=== PATIENT | male | born 1940 | race Caucasian/White ===

== ENCOUNTER → 2020-09-16 02:03 | Outpatient (CLI) | payer MEDICARE, SELFPAY ==
[2020-09-16 19:43] LABS: SARS-CoV-2 RNA PCR Negative
== END ==
PROVIDERS: PCP Physician Assistant; Visit Provider Internal Medicine Gastroenterology
DX: Z01.812 Encounter for preprocedural laboratory examination (principal); Z20.822 Contact with and (suspected) exposure to COVID-19
CPT/HCPCS: C9803; U0003; U0005

== ENCOUNTER 2020-09-19 02:39 | Day surgery (SDC) | payer MEDICARE, SELFPAY ==
[2020-09-12 11:47] VITALS: BMI 28.0
[2020-09-19 10:48] VITALS: BP 152/68; PULSE 64; RESP 20; TEMP 36; O2SAT 99; BMI 27.6
--- NOTE | 2020-09-19 11:01 | WPDANESEPPF ---
Anes - Initial Pre Proc Eval Procedure: Operation Date: 09/19/20 12:30 Proposed Procedures p Colonoscopy - Campbell Cobian MD Date/Time: 09/19/20 11:01 Surgeon: Campbell Cobian MD Pre Op Diagnosis: rectal bleed Patient Data Age: 80 Gender: M Height: 1.83 m Weight: 92.2 kg Last Vital Signs Temp 36.0 C L 09/19/20 10:48 Pulse 64 09/19/20 10:48 Resp 20 09/19/20 10:48 BP 152/68 H 09/19/20 10:48 Pulse Ox 99 09/19/20 10:48 Allergies Allergy/AdvReac Type Severity Reaction Status Date / Time No Known Allergies Allergy Verified 09/19/20 10:47 Home Medications Medication Instructions Recorded Confirmed Type albuterol sulfate 1 inh INHALATION QID PRN 03/24/19 09/12/20 History aspirin 81 mg PO DAILY 03/24/19 09/12/20 History furosemide 40 mg PO DAILY 03/24/19 09/12/20 History lisinopril 40 mg PO DAILY 03/24/19 09/12/20 History metoprolol succinate [Toprol XL] 100 mg PO DAILY 03/24/19 09/12/20 History simvastatin 40 mg PO DAILY 03/24/19 09/12/20 History diclofenac sodium 75 mg PO DAILY 09/12/20 09/12/20 History owyqrfdvuxm-sydpslsgb-jvlwuqnt 1 inh INHALATION DAILY 09/12/20 09/12/20 History [Trelegy Ellipta] sod picosulf 10 mg-magnes 3.5 160 ml PO BID #160 ml 09/12/20 09/19/20 Rx gram-citric 12 gram/160 mL oral solution Patient hx anesthesia problems: none Family hx anesthesia problems: none PMFSH Past Medical History Medical History (Updated 09/19/20 @ 11:27 by Campbell Cobian MD) Cataracts, bilateral Clavicle fracture COPD (chronic obstructive pulmonary disease) First degree AV block HTN (hypertension) Hyperlipidemia Inguinal hernia Peripheral edema Shoulder fracture, right Surgical History Surgical History (Updated 01/13/20 @ 14:25 by Vania Valdovinos CMA) H/O bilateral cataract extraction History of inguinal hernia repair History of tonsillectomy Family History Family History Father Family history of primary malignant neoplasm of liver, Onset Age: 84 Social History Social History Years smoked: 54 Smoking status: Former smoker Tobacco type: cigarettes Smoking end date: 05/05/06 Alcohol intake: current Alcohol use details: SOCIALLY Living arrangements: with family Gender identity (if verbalized by the patient): Male Spiritual care concerns: No Anes - Eval Final PreProcedure Day of Procedure 09/19/20 11:01 Patient weight: overweight Heart: regular rate and rhythm Lungs: clear to auscultation and normal air movement Airway: Mallampati scale class II Neurological: alert and oriented Last oral intake: >/= 8 hours ASA classification: III Emergent: no Anesthetic plan: proceed Anesthesia type and monitoring: general GIVS and standard monitoring Informed Consent: The patient's anesthetic plan and its attendant risks and benefits were discussed with the patient/family/POA. Questions were solicited and answers provided to the satisfaction of the patient/family/POA.
[2020-09-19] MEDS: LACTATED RINGERS 1,000 ML 150 ML IV CONT (11:07)
--- NOTE | 2020-09-19 11:25 | WPDGICN ---
Assessment and Plan Assessment and plan (1) GI bleeding: Code(s): K92.2 - Gastrointestinal hemorrhage, unspecified Status: Acute Assessment and Plan: Patient with rather abrupt onset rather significant GI bleeding period occurred initially 10 days ago and has been subsiding subsequently. Is difficult to attribute this to lower GI or upper GI source. Plan is to evaluate more thoroughly with a colonoscopy and follow up with EGD if necessary. Follow-up CBC may be obtained day of procedure. (2) Chronic respiratory failure: Qualifiers: Respiratory failure complication: unspecified whether with hypoxia or hypercapnia Qualified Code(s): J96.10 - Chronic respiratory failure, unspecified whether with hypoxia or hypercapnia Code(s): J96.10 - Chronic respiratory failure, unspecified whether with hypoxia or hypercapnia Status: Acute GI Consult Note Consult date/time: 09/19/20 11:25 HPI: Forrest Cazares is a 80 year old male Presents for evaluation of GI bleeding. Patient in usual state of health. He has underlying COPD. Apparently 8 dinner while out of town. Upon returning home passed a large amount of bright red blood per rectum this occurred approximately 1-1/2 weeks ago. He states he had bright red blood that became darkish over the next several days diarrhea stools developed period admixed with bowel movement. He states stools were somewhat dark in appearance. He denies any associated abdominal pain or cramping. He has had no rectal pain. Denies any weight loss. Past medical history is significant for COPD for which she is on supplemental oxygen. Family history is noncontributory. Review of Systems Review of Systems: All systems reviewed & are unremarkable except as noted in HPI and below [facility] Past Medical History Medical History (Updated 09/19/20 @ 11:27 by Campbell Cobian MD) Cataracts, bilateral Clavicle fracture COPD (chronic obstructive pulmonary disease) First degree AV block HTN (hypertension) Hyperlipidemia Inguinal hernia Peripheral edema Shoulder fracture, right Surgical History Surgical History (Updated 01/13/20 @ 14:25 by Vania Valdovinos CMA) H/O bilateral cataract extraction History of inguinal hernia repair History of tonsillectomy Family History Family History Father Family history of primary malignant neoplasm of liver, Onset Age: 84 Social History Social History Years smoked: 54 Smoking status: Former smoker Tobacco type: cigarettes Smoking end date: 05/05/06 Alcohol intake: current Alcohol use details: SOCIALLY Living arrangements: with family Gender identity (if verbalized by the patient): Male Spiritual care concerns: No Meds Home Medications and Allergies Home Medications Medication Instructions Recorded Confirmed Type albuterol sulfate 1 inh INHALATION QID PRN 03/24/19 09/12/20 History aspirin 81 mg PO DAILY 03/24/19 09/12/20 History furosemide 40 mg PO DAILY 03/24/19 09/12/20 History lisinopril 40 mg PO DAILY 03/24/19 09/12/20 History metoprolol succinate [Toprol XL] 100 mg PO DAILY 03/24/19 09/12/20 History simvastatin 40 mg PO DAILY 03/24/19 09/12/20 History diclofenac sodium 75 mg PO DAILY 09/12/20 09/12/20 History xrxaokewckb-uxpkfqrwe-zoyjummk 1 inh INHALATION DAILY 09/12/20 09/12/20 History [Trelegy Ellipta] sod picosulf 10 mg-magnes 3.5 160 ml PO BID #160 ml 09/12/20 09/19/20 Rx gram-citric 12 gram/160 mL oral solution Allergies Allergy/AdvReac Type Severity Reaction Status Date / Time No Known Allergies Allergy Verified 09/19/20 10:47 Vital Signs Vital Signs - 24 hr 09/19/20 10:48 Temperature 96.8 F L Pulse Rate 64 Respiratory Rate 20 Blood Pressure 152/68 H Pulse Oximetry 99 Exam Narrative: Exam Narrative: Physical exam reveals patient be al
[2020-09-19 12:04] VITALS: BP 113/62; PULSE 62; RESP 26; O2SAT 95
[2020-09-19 12:14] VITALS: BP 114/57; PULSE 61; RESP 31; O2SAT 93
[2020-09-19 12:24] VITALS: BP 150/80; PULSE 56; RESP 24; O2SAT 98
== END 2020-09-19 12:41 | disposition home or self-care (01) ==
PROVIDERS: PCP Physician Assistant; Visit Provider Internal Medicine Gastroenterology
PROC: 0DJD8ZZ Inspection of Lower Intestinal Tract, Via Natural or Artificial Opening Endoscopic (ICD-10-PCS; CPT 45378; principal; 2020-09-19 12:30)
DX: K92.2 Gastrointestinal hemorrhage, unspecified (principal); Q27.33 Arteriovenous malformation of digestive system vessel; K63.5 Polyp of colon; K57.30 Diverticulosis of large intestine without perforation or abscess without bleeding; K64.8 Other hemorrhoids; J96.10 Chronic respiratory failure, unspecified whether with hypoxia or hypercapnia; J44.9 Chronic obstructive pulmonary disease, unspecified; Z99.81 Dependence on supplemental oxygen; I44.0 Atrioventricular block, first degree; I10 Essential (primary) hypertension; E78.5 Hyperlipidemia, unspecified; Z87.891 Personal history of nicotine dependence; Z79.51 Long term (current) use of inhaled steroids; Z79.82 Long term (current) use of aspirin
CPT/HCPCS: 45382; 45385; 88305; C9803; J2001; J2704; J7120; U0003; U0005

== ENCOUNTER 2021-01-24 14:48 | Outpatient (CLI) | payer MEDICARE, SELFPAY ==
--- NOTE | 2021-01-24 16:55 | P.PCNPFT_ITS ---
PFT Procedure Performed PFT Procedure Performed Spirometry with Pre/Post Bronchodilator Plethysmography (Lung Vol) Diffusing Cap (DLCO) Flow Vol Loop PFT Interpretation This is a pulmonary function test with pre and post-bronchodilator spirometry, plethysmography and diffusing capacity. The test was performed and results interpreted in accordance with the 2019 and 2005 ATS/ERS Task Force guidelines respectively using the Global Lung Function Initiative-2012 reference equations. Patient demonstrated good effort and cooperation. Reproducibility criteria were met. The quality of the pre bronchodilator spirometry maneuver was Grade B and post bronchodilator spirometry maneuver was Grade B. Findings: Spirometry: There is decreased maximal expiratory airflow at all lung volumes with concave expiratory flow tracing. The contour the inspiratory flow tracing is normal. The pre bronchodilator FVC is 3.16 L, 76% predicted. The pre bronchodilator FEV1 is 1.63 L, 53% predicted. The FEV1: FVC ratio is 52%. Post bronchodilator FVC is 3.14 L, representing 1% decrease. The post bronchodilator FEV1 is 1.59 L, representing a 2% decrease. Plethysmography: The total lung capacity is 7.20 L, 96% predicted. The functional residual capacity is 5.11 L, 126% predicted. The residual volume is 4.04 L, 146% predicted. Diffusing capacity: The absolute diffusing capacity is 6.1, 25% predicted. The diffusing capacity corrected for alveolar volume is 1.72, 49% predicted. In comparison to the previous pulmonary function test on 09/19/2014 the post bronchodilator FVC has decreased from 3.70 L to 3.14 L. The post bronchodilator FEV1 is unchanged from 1.69 L to 1.59 L. the total lung capacity is unchanged from 7.17 L to 7.20 L. The functional residual capacity is increased from 4.43 L to 5.11 L. The residual volume is unchanged from 3.77 L to 4.04 L. The absolute diffusing capacity is decreased from 10.3 to a value of 6.1. The diffusing capacity corrected for alveolar volume is decreased from 2.49 to a value of 1.72. Impression: There is a moderately severe obstructive abnormality without si gnificant improvement after inhaling a single dose of albuterol. The increase in residual volume is consistent with air trapping from an obstructive abnormality. The absolute diffusing capacity is severely decreased and remains moderately decreased when corrected for alveolar volume. In comparison to the previous pulmonary function test on 09/19/2014 there has been a greater than anticipated time dependent decrease in the post bronchodilator FVC, functional residual capacity and a greater than anticipated time dependent decrease in the absolute diffusing capacity and diffusing capacity corrected for alveolar volume with no change in the post bronchodilator FEV1, total lung capacity, and residual volume. Clinical correlation is recommended. There are no prior studies for comparison
== END 2021-01-24 14:49 | disposition home or self-care (01) ==
PROVIDERS: PCP Family Medicine; Visit Provider Student in an Organized Health Care Education/Training Program
DX: J96.11 Chronic respiratory failure with hypoxia (principal); R94.2 Abnormal results of pulmonary function studies
CPT/HCPCS: 94060; 94726; 94729

== ENCOUNTER 2021-03-27 10:42 | Outpatient (CLI) | payer MEDICARE, SELFPAY ==
--- NOTE | ~2021-03-27 | US_ITS ---
EXAMINATION: US carotid duplex BI EXAM DATE: 03/27/2021 11:26 INDICATION: Slurred speech. TECHNIQUE: Grayscale, color and pulsed Doppler images of the cervical carotid arteries were obtained . The degree of vessel stenosis is placed in one of the following categories: normal, <50% stenosis, 50-69% stenosis, >=70% stenosis but less than near-occlusion, near-occlusion, or occlusion. Note that percent stenosis relative to normal distal artery lumen diameter is indirectly measured from velocit y measurements as described by Joe, et al. Radiology 2003; 229:[id number]. There is no prior study fo r comparison. FINDINGS: RIGHT SIDE: Right common carotid artery peak systolic velocity (PSV in cm/s): 70 Right bulb/internal carotid artery peak systolic velocity (PSV in cm/s): 65 Right internal carotid artery end diastolic velocity (EDV in cm/s): 15 Right ICA/CCA peak systolic ratio: 0.9 Right external carotid artery peak systolic velocity (PSV in cm/s): 79 Right vertebral artery antegrade flow: yes There is mild carotid bulb plaque. Velocity and Doppler waveforms in the common and internal carotid arteries is normal. LEFT SIDE: Left common carotid artery peak systolic velocity (PSV in cm/s): 74 Left bulb/internal carotid artery peak systolic velocity (PSV in cm/s): 65 Left internal carotid artery end diastolic velocity (EDV in cm/s): 23 Left ICA/CCA peak systolic ratio: 0.9 Left external carotid artery peak systolic velocity (PSV in cm/s): 76 Left vertebral artery antegrade flow: yes There is mild carotid bulb plaque. Velocity and Doppler waveforms in the common and internal carotid arteries is normal. IMPRESSION: 1. Less than 50 percent stenosis in the right internal carotid artery. 2. Less than 50 percent stenosis in the left internal carotid artery. Reviewed, dictated and finalized at location A. [facility]
== END 2021-03-27 10:43 | disposition home or self-care (01) ==
LOC: ANHIMG 10:49
PROVIDERS: PCP Family Medicine; Visit Provider Internal Medicine Cardiovascular Disease
DX: R47.81 Slurred speech (principal)
CPT/HCPCS: 93880

== ENCOUNTER 2021-08-31 13:30 | Outpatient (RCR) | payer MEDICARE, SELFPAY ==
[2021-05-04 11:10] VITALS: BP 112/58; O2SAT 91
[2021-05-04 11:54] VITALS: PULSE 62
== END 2021-08-31 23:59 | disposition home or self-care (01) ==
LOC: ANHCPREHAB 13:30
PROVIDERS: PCP Physician Assistant; Visit Provider Student in an Organized Health Care Education/Training Program
DX: J44.9 Chronic obstructive pulmonary disease, unspecified (principal)
CPT/HCPCS: 94625; 97150; G0424

== ENCOUNTER 2021-09-11 13:30 | Outpatient (RCR) | payer MEDICARE, SELFPAY ==
[2021-09-02 00:01] VITALS: BP 112/58; PULSE 62; O2SAT 91
== END 2021-09-21 09:55 | disposition home or self-care (01) ==
LOC: ANHCPREHAB 13:30
PROVIDERS: PCP Physician Assistant; Visit Provider Student in an Organized Health Care Education/Training Program
DX: J44.9 Chronic obstructive pulmonary disease, unspecified (principal)
CPT/HCPCS: 94625

== ENCOUNTER 2021-10-24 12:53 | Outpatient (CLI) | payer MEDICARE, SELFPAY ==
--- NOTE | 2021-10-24 14:44 | WPDSIXMINUTE ---
Six Minute Walk Procedure Procedure Performed Pulmonary Stress Test (6 min walk) Six Minute Walk Six Minute Walk: This 6 minutes walk test was carried out with the patient breathing supplemental oxygen at 6 liters/minute. The pre walk oxyhemoglobin saturation was 90%. The patient walked over 243 m with 1 stop of 20 seconds during testing. During the walk the oxyhemoglobin saturation ranged between 87% and 90%. The perceived dyspnea on the Christina scale was 5 at baseline and increased to 8 at the end of testing. Impression: No clinically significant oxyhemoglobin desaturation on current supplemental oxygen of 6 liters/minute.
== END 2021-10-24 12:54 | disposition home or self-care (01) ==
LOC: ANHPFT 12:58
PROVIDERS: PCP Physician Assistant; Visit Provider Student in an Organized Health Care Education/Training Program
DX: J44.9 Chronic obstructive pulmonary disease, unspecified (principal)
CPT/HCPCS: 94618